=== PATIENT | female | born 1995 | race Caucasian/White ===

== ENCOUNTER 2016-09-11 21:36 | Inpatient (IN) ==
[2016-09-11] MEDS ORDERED: Ringers Solution, Lactated 1,000 ML IVC ONE (22:33)
--- NOTE | 2016-09-11 22:52 | OB/GYN History & Physical ---
Date of Encounter: 09/11/16 Time of Encounter: 22:39 Assessment and Plan (1) 38 weeks gestation of Current visit: Yes Status: Acute (2) Decreased movement Current visit: Yes Status: Acute Patient reports decreased movement x 2 days. heart tracing shows variable decelerations. As patient has history of non-compliance, is 38 weeks and has variable decelerations on monitor will keep the patient for observation. Will get a CBC now and give a liter bolus. Will continue to monitor heart tones. Ultrasound ordered for the morning. (3) Variable deceleration Current visit: Yes Status: Acute (4) Pedal edema Current visit: Yes Status: Acute History of Present Illness Chief complaint: 38 weeks gestation with decreased movement HPI: Ms. Stephens is a 20 year old female at 38 weeks + 2 days who presents with decreased movement. Patient reports that she has had decreased movement for the last two days. She also reports vaginal discharge, some low pelvic cramping today and nausea. She states that she also noted that her left leg has been more swollen than her right for the past 3-4 days with numbness. She denies any shortness of breath, left leg pain, erythema or tenderness. Patient denies fluid loss, headaches, vision changes, chest pain, or changes in bowel or bladder function. Her last 2 pregnancies for term normal spontaneous vaginal delivery. She is AB+, rubella non-immune, varicella negative, and GBS negative. On exam, patient is awake and alert. Lungs are clear to auscultation. Both legs with swelling, left worse than right. No erythema or tenderness to palpation. Cervix 1 cm, 50%. Rare Variable decelerations on monitor. Past Med Surg Social Fam HX - Past Medical History Medical history: no medical history Psychiatric history: no psych history - Past Surgical History Surgical History: no surgical history - Social History Smoking Status: Never smoker Smokeless Tobacco Status: No Alcohol use: none Drug use: none Obstetrical History - Pregnancies : 3 Para: 2 Term: 2 : 0 Ab's: 0 Livin Medications and Allergies Oaf846/FA/Omega3/Dha/Fish Oil [ Gummies] 1 each PO DAILY #30 tab.chew [Rx] Allergies No Known Allergies Allergy (Verified 02/07/16 12:05) Review of System OB - Constitutional Constitutional ROS IM: no chills, no fever(s) - Cardiovascular Cardiovascular: leg edema, no chest pain, no palpitations - Respiratory Respiratory: no cough, no dyspnea, no wheezing - Gastrointestinal Gastrointestinal: nausea, no constipation, no diarrhea, no vomiting - Genitourinary Genitourinary: vaginal discharge, no urinary frequency, no urinary urgency, no vaginal odor, no vaginal pruritis - Neurological Nerological: no headache(s), no loss of vision, no other visual disturbances Exam - Vital Signs Vital signs: Afeb, VSS. FHTs 140s baseline, CAT 2 - Constitutional Constitutional: well developed, well nourished, no acute distress, average body habitus - HEENT HEENT: Normocephaly, Mucus Membranes Moist - Lungs Respiratory exam: CTAB - Cardiovascular Cardiovascular exam: RRR - Abdomen Abdomen: Present: bowel sounds normal, gravid - Extremities Extremities exam: pedal edema - Cervix Dilation: 1 Effacement: 50 Results Result Diagrams: 09/11/16 22:45 All other labs normal. - VTE Reasons for not Prescribing Prophylaxis: Treatment not Indicated - Low risk for VTE - Attending Attestation I examined this patient and my medical decision-making was reviewed with the PRINTER SLOTTER OPERATOR/PA/Advanced Practice Nurse/Resident Physician. I agree with the documented findings, disposition and treatment plan as described except to the extent set forth below.
[2016-09-11 22:59] LABS: Basophils % 0.3 %; Eosinophils # 0.1 K/mcL (0.0-0.6); Eosinophils % 0.4 %; Hematocrit 34.3 % (35.3-44.9); Hemoglobin 11.5 g/dL (11.5-15.4); Immature Granulocytes % 0.7 % (0-4); Lymphocytes # 2.7 K/mcL (0.6-4.6); Lymphocytes % 22.9 %; Mean Corpuscular HGB Conc 33.5 g/dL (31.6-35.5); Mean Corpuscular Hemoglobin 29.3 pg (28.0-33.3); Mean Corpuscular Volume 87.5 fL (83.0-100.0); Mean Platelet Volume 11.4 fL (9.4-12.4); Monocytes % 8.7 %; Neutrophils # 7.9 K/mcL (1.6-8.9); Platelet Count 232 K/mcL (140-400); Red Blood Count 3.92 M/mcL (3.82-4.97); Red Cell Distribution Width 13.3 % (11.5-14.5)
--- NOTE | 2016-09-11 23:18 | OB Labor Progress Note ---
Date of Encounter: 09/11/16 Time of Encounter: 23:16 Labor Progress Note - Subjective Subjective: Pt receiving IV fluid bolus - Vital Signs Vital Signs: Afeb,VSS - Cervix Cervix: N/A - Heart Tones Heart Tones: 140s CAT1 - [place]: Irritability - Interventions Interventions: 38 wk IUP,noncompliance, decreased movement w/ h/o CAT2 tracing - Plan Plan: extended monitoring, IVF, US in AM for further evaluation
--- NOTE | 2016-09-11 23:51 | OB Labor Progress Note ---
Date of Encounter: 09/12/16 Time of Encounter: 23:49 Labor Progress Note - Subjective Subjective: Patient is comfortable and receiving IV bolus. Baby had another deceleration lasting approximately a minute. As such, it was decided that she should continue with induction of labor. This was discussed with patient and she is in agreement. I examined this patient and my medical decision-making was reviewed with the HOME CARE NURSE/PA/Advanced Practice Nurse/Resident Physician. I agree with the documented findings, disposition and treatment plan as described except to the extent set forth below. - Vital Signs Vital Signs: Afebrile, vital signs stable. - Cervix Cervix: Last exam - cervix 1cm, 50% - Heart Tones Heart Tones: Deceleration lasting approximately 1 min - category II heart tracing. - [place]: Irritability - Interventions Interventions: Patient received fluid bolus. - Plan Plan: 38 wk IUP , Induction of labor with cervidil. Will continue to monitor progression of labor and heart tones.
[2016-09-12] MEDS ORDERED: Ringers Solution, Lactated 1,000 ML ONE ×5 (00:29→22:25)
--- NOTE | 2016-09-12 08:41 | OB Labor Progress Note ---
Date of Encounter: 09/12/16 Time of Encounter: 08:39 Labor Progress Note - Subjective Subjective: Patient complains of her vagina feeling raw since the cervidil was placed. - Cervix Cervix: 1/50/-3 - Heart Tones Heart Tones: baseline 125, category 1 - [place]: no contractions - Interventions Interventions: Transcervical virk catheter placed without difficulty. Cervidil removed. - Plan Plan: Induction for non-reassuring tracing in the night and noncompliance with decreased movement. Virk placed. Wait 1 hour and then begin PO cytotec.
[2016-09-12] MEDS ORDERED: miSOPROStol 100 MCG TABLET PO SCH (09:35)
[2016-09-12] MEDS ORDERED: Epidural Premix (fent/bupiv) 110 ML EP SCH (12:30)
--- NOTE | 2016-09-12 14:29 | OB Labor Progress Note ---
Date of Encounter: 09/12/16 Time of Encounter: 14:27 Labor Progress Note - Subjective Subjective: Pt with mild to moderate discomfort. - Cervix Cervix: 3-4/70/-2 - Heart Tones Heart Tones: Category I - [place]: 1-2 minutes - Interventions Interventions: AROM for large amount clear fluid. IUPC and ISE placed. - Plan Plan: Continue to monitor. Epidural when requested. Anticipate .
[2016-09-12] MEDS ORDERED: Oxytocin 20 units/ LR 1000 mL 20 UNIT/1,000 ML BAG IVC SCH (15:30)
[2016-09-12] MEDS ORDERED: *HR* FentaNYL (PF) 100 MCG/2 ML VIAL ONE (16:52)
[2016-09-12] MEDS ORDERED: Bupivacaine-MPF 0.25% 10 ML VIAL ONE (16:53)
[2016-09-12] MEDS ORDERED: Epidural Premix (fent/bupiv) 110 ML EP ONE ×2 (16:55→23:07)
--- NOTE | 2016-09-12 17:10 | Anesthesia Evaluation PreOp ---
Date of Encounter: 09/12/16 Time of Encounter: 16:55 - Past History Planned Operation: Labor Epidural Cardiac History: Denies any Significant Hx Pulmonary History: Denies Any Significant HX Other Medical History: Denies Any Significant HX Anesthesia History: No Prior Anesthetic Complications : Yes (39 weeks) Alcohol Use: none Drug use: none Medications and Allergies [id number]/FA/Omega3/Dha/Fish Oil [ Gummies] 1 each PO DAILY #30 tab.chew [Rx] Allergies No Known Allergies Allergy (Verified 02/07/16 12:05) - Meds/Allergy Pre-op Review Medications Reviewed: Yes Allergies Reviewed: Yes Beta Blockers on Current Med List: No Anesthesia Results - Labs 09/11/16 22:45 Anesthesia Exam O2 Sat Height 1.7 m Weight 102.965 kg Height: 5'7 Weight: 227 lbs NPO (# of Hours): MN - HEENT Pupil (Motor): Pupils equal, EOMI Mallampati: II Teeth: Normal Oral Opening: Greater than 3 - METAL TRIM ERECTOR LOC: Oriented METAL TRIM ERECTOR Motor: Normal RUE, Normal LUE, Normal RLE, Normal LLE, Normal Face METAL TRIM ERECTOR Sensory: Normal: RUE, LUE, RLE, LLE, Face - Cardiac Rhythm: Regular Murmur: None JVD: No Carotid Bruit: No - Pulmonary Breath Sounds: bilateral Clear Respiratory Effort: Symmetrical Anesthesia Assess/Plan ASA Score: 2 Modified Jacinto Scale for Level of Consciousness: Cooperative, oriented, and tranquil Anesthetic Plan: Regional Monitoring Plan: Standard Monitors Recovery Plan: Other (Discussed LE, risks and benefits, agrees to proceed)
--- NOTE | 2016-09-12 17:12 | Anesthesia Procedures ---
Date of Encounter: 09/12/16 Time of Encounter: 16:55 Procedures: Anesthesia - Epidural/Spinal Patient ID/Chart reviewed: Yes Patient examined: Yes OB Eval: Gestational age: 39 OB Eval: : 3 OB Eval: Hx Para: 2 OB Eval: Dilated at (cm): 6 OB Eval: Contractions: Non-stressed pattern Consent Obtained: Yes Supplemental Oxygen: None/Room Air Site Prep: Aseptic Technique, Sterile prep and drape Patient position: upright Local Anesthetic: Lidocaine 1% Touhy Needle Gauge: 19 Touhy Needle Depth (cm): 4 Catheter Depth at Skin (cm): 6 Test Dose Result: Negative Loading Dose: 0.25% Marcaine (mls): 10 Loading Dose: Fentanyl (mcg): 100 Loading Dose Administered: Thru Touhy Needle Infusion Med: 0.125% Bupivacaine w/ 2 mcg/ml Fentanyl Infusion Rate (mls/hr): [address]: Tegaderm Interspace Used: L3-L4 Loss of Resistance (RUPAL): Yes Blood: No CSF: No Paresthesia: No
[2016-09-12] MEDS ORDERED: Metoclopramide 10 MG/2 ML VIAL IVP PRN (22:30)
[2016-09-12] MEDS ORDERED: Ringers Solution, Lactated 1,000 ML IVC SCH (22:30)
[2016-09-12] MEDS ORDERED: Famotidine 20 MG/2 ML VIAL IVP PRN (22:30)
--- NOTE | 2016-09-13 01:10 | OB/GYN Procedure Note ---
Delivery - Delivery Date: 09/13/16 Provider: Vesna De La Cruz Intrapartum events: none Delivery induction: oxytocin, virk, misoprostol Delivery monitor: external FHT, external uterine, internal FHT, internal uterine Anesthesia: epidural Estimated Blood Loss: 300 - Infant (s) A Infant Delivery Date: 09/13/16 Infant Delivery Time: 00:51 Presentation: vertex Position: MAHI Route of delivery: Gender: Female Viability: Viable Pounds: 6 Ounces: 13 Weight Gram: 3.09 kg at 1 minute: 7 at 5 mins: 9 Shoulder Dystocia: not encountered Specimens collected: cord blood Placenta: spontaneous Cord: nuchal cord (x3) - Repair Episiotomy: none Laceration Description: None - Complications Delivery comments: Called to room with patient complete and +2 station. Under maternal effort she delivered a viable female weighing 6 lbs. 13 oz. and Apgars 7 and 9 at one and 5 minutes respectively over an intact perineum. Following delivery of the head a nuchal cord 3 was reduced. No shoulder dystocia was encountered. The remainder of the delivered with maternal effort. was placed on mom's abdomen cord was clamped and cut. Cord blood was collected. Placenta delivered spontaneously, complete, and intact with a three-vessel cord. There were no vaginal, labial, or cervical lacerations. Mother and are recovering in LDR in stable condition. - Disposition Mom disposition: stable in LDR [place] disposition: stable in LDR
[2016-09-13] MEDS ORDERED: Oxytocin 20 units/ LR 1000 mL 20 UNIT/1,000 ML BAG IVC ONE (01:24)
[2016-09-13] MEDS ORDERED: Oxytocin 20 units/ LR 1000 mL 20 UNIT/1,000 ML BAG IV SCH (01:24)
[2016-09-13] MEDS ORDERED: Acetaminophen 325 MG TABLET PO PRN (01:24)
[2016-09-13] MEDS ORDERED: Measles/Mumps/Rubella Vacc 0.5 ML VIAL SQ PRN (01:24)
[2016-09-13] MEDS: Ibuprofen 600 MG TABLET PO PRN ×2 (04:51→11:58)
[2016-09-13] MEDS ORDERED: Prenatal Vit/FA 1 EACH TABLET PO SCH (09:00)
[2016-09-14 05:47] LABS: Hematocrit 35.2 % (35.3-44.9); Hemoglobin 11.6 g/dL (11.5-15.4); Mean Corpuscular Hemoglobin 29.3 pg (28.0-33.3); Mean Corpuscular Volume 88.9 fL (83.0-100.0); Mean Platelet Volume 11.4 fL (9.4-12.4); Platelet Count 202 K/mcL (140-400); Red Blood Count 3.96 M/mcL (3.82-4.97); Red Cell Distribution Width 13.4 % (11.5-14.5)
[2016-09-14 08:05] VITALS: BP 111/76
--- NOTE | 2016-09-14 08:46 | OB/GYN Progress Note ---
Date of Encounter: 09/14/16 Time of Encounter: 08:44 - Assessment and Plan (1) Sterilization Current Visit: Yes Status: Acute 1. Risks and benefits of tubal sterilization were discussed. (2) 38 weeks gestation of Current Visit: Yes Status: Acute (3) Back pain Current Visit: Yes Status: Acute 1. Consult anesthesia. Qualifiers: Back pain location: low back pain Chronicity: acute Back pain laterality : midline Sciatica presence: unspecified whether sciatica present Qualified Code(s): M54.5 - Low back pain Subjective - Subjective Interval history: Pt complaining of back pain associated with her epidural site. Patient reports: appetite normal, voiding normally, pain well controlled Amelia: doing well Objective - Latest Vital Signs Latest vital signs: Vital Signs Temp Pulse Resp BP Pulse Ox 09/14/16 08:04 97.9 F 73 16 111/76 98 09/13/16 21:50 97.7 F 88 16 118/78 98 09/13/16 16:35 97.7 F 86 18 116/64 98 Intake and Output 09/13/16 09/14/16 09/14/16 23:59 07:59 15:59 Intake Total 1000 / 1000 Balance 1000 / 1000 Intake: Free Water 1000 / 1000 Other: Stool Characteristics Normal for Patient Normal for Patient Weight 100.9 kg Patient Weight 09/14/16 23:59 Weight 100.9 kg - Exam Lungs: bilateral: normal Chest: Normal S1, Normal S2 Extremities: Present: normal Abdomen: Present: normal appearance, soft, gravid Uterus: Present: firm Uterus Position: 2 Fingers Above Umbilicus - Labs Labs: Laboratory Results - last 24 hr 09/14/16 05:29 WBC 12.7 H RBC 3.96 Hgb 11.6 Hct 35.2 L MCV 88.9 MCH 29.3 MCHC 33.0 RDW 13.4 Plt Count 202 MPV 11.4
[2016-09-14] MEDS ORDERED: Lidocaine -MPF 2% 5 ML VIAL INFILT ONE (10:24)
[2016-09-14] MEDS ORDERED: *HR* Succinylcholine 200 MG/10 ML VIAL IVP ONE (10:24)
[2016-09-14] MEDS ORDERED: *HR* Propofol 200 MG/20 ML VIAL IVP ONE (10:25)
[2016-09-14] MEDS ORDERED: *HR* FentaNYL (PF) 100 MCG/2 ML VIAL ONE (10:26)
[2016-09-14] MEDS ORDERED: *HR* Midazolam HCl 2 MG/2 ML VIAL ONE (10:27)
--- NOTE | 2016-09-14 11:30 | Discharge Summary ---
Date of Encounter: 09/14/16 Time of Encounter: 11:30 - Discharge Diagnosis (1) 38 weeks gestation of Priority: Primary Status: Resolved (2) Back pain Priority: Secondary Status: Acute Qualifiers: Back pain location: low back pain Chronicity: acute Back pain laterality : midline Sciatica presence: unspecified whether sciatica present Qualified Code(s): M54.5 - Low back pain - Discharge Medications Home Medications: Xsb717/FA/Omega3/Dha/Fish Oil [ Gummies] 1 each PO DAILY #30 tab.chew [Rx] Allergies/Adverse Reactions: Allergies No Known Allergies Allergy (Verified 02/07/16 12:05) Data Procedures and tests throughout hospitalization: Laboratory Tests 09/11/16 09/14/16 22:45 05:29 WBC 11.8 H 12.7 H RBC 3.92 3.96 Hgb 11.5 11.6 Hct 34.3 L 35.2 L MCV 87.5 88.9 MCH 29.3 29.3 MCHC 33.5 33.0 RDW 13.3 13.4 Plt Count 232 202 MPV 11.4 11.4 Immature Gran % 0.7 Seg Neutrophils % 67.0 Lymphocytes % 22.9 Monocytes % 8.7 Eosinophils % 0.4 Basophils % 0.3 Neutrophils # 7.9 Lymphocytes # 2.7 Monocytes # 1.0 Eosinophils # 0.1 Basophils # 0.0 Labs on day of discharge: Labs from last 24 hours 09/14/16 05:29 WBC 12.7 H RBC 3.96 Hgb 11.6 Hct 35.2 L MCV 88.9 MCH 29.3 MCHC 33.0 RDW 13.4 Plt Count 202 MPV 11.4 Date of admission: 09/12/16 08:30 Primary care physician: Denise Ren MD Consults: 09/13/16 01:24 Consult to Certified Prosthetist/Orthotist [CONS] Routine Reason for SW Consult: noncomplaint care - Patient Status Disposition: Home, Self-Care Condition: Good Functional capacity at discharge: independent ambulation Overall status at discharge: patient is progressing back to baseline - Discharge Instructions Follow Up With: Denise Ren MD [Primary Care Provider] - - Diet and Activity Activity: increase activity as tolerated Diet: advance to your usual diet Hospital Course SOFTWARE INSTALLER Time Attestation: Total time spent providing and/or coordinating discharge services: Exam - Constitutional Vitals: Temp Pulse Resp BP Pulse Ox 97.9 F 73 16 111/76 98 09/14/16 08:04 09/14/16 08:04 09/14/16 08:04 09/14/16 08:04 09/14/16 08:04 General appearance IM: A&O X 3 - Respiratory Respiratory exam: Present: CTAB - Cardiovascular Cardiovascular exam IM: Present: RRR - GI/Abdominal GI/Abdominal exam IM: normal bowel sounds - Uterus Position: 2 Fingers Above Umbilicus - Extremities Exam Extremities exam IM: Present: full ROM - Neurological Exam Neurological exam: CN II-XII intact - VTE Reasons for not Prescribing Prophylaxis: Treatment not Indicated - Low risk for VTE - Attending Attestation lesli parham md [facility]og
[2016-09-14] MEDS: Ibuprofen 600 MG TABLET PO PRN (11:36)
== END 2016-09-14 13:45 | disposition home or self-care (01) | DRG 560 ==
LOC: 1NENULAB → OBSVTOIN 21:36 → 1NENUOBS 09-13 04:01
PROVIDERS: ADMIT Obstetrics & Gynecology; ATTEND Obstetrics & Gynecology